=== PATIENT | female | born 1990 | race Caucasian/White ===

== ENCOUNTER → 2017-07-13 15:20 | Outpatient (CLI) | payer OTHER, SELFPAY ==
[2017-07-18 15:16] LABS: HPV APTIMA, High Risk Negative (Negative)
== END ==
PROVIDERS: Visit Provider Obstetrics & Gynecology
DX: Z12.4 Encounter for screening for malignant neoplasm of cervix (principal)
CPT/HCPCS: 88175; G0145

== ENCOUNTER → 2022-03-30 | Outpatient (CLI) | payer OTHER, SELFPAY ==
[2022-03-30 17:39] LABS: Absolute Lymphocyte Count 1.76 X10^3/uL (0.83-4.51); Absolute Neutrophil Count 3.2 X10^3/uL (2.0-7.7); Basophil# 0.01 X10^3/uL; Basophil% 0.2 % (0-1); Eosinophil# 0.08 X10^3/uL; Eosinophils% 1.5 % (0-5); Hematocrit 37.4 % (37-47); Hemoglobin 12.9 g/dL (12.0-15.0); Lymphocyte # 1.76 X10^3/ul (0.83-4.51); Lymphocyte % 32.4 % (19-41); Mean Corp Hgb Conc 34.5 g/dL (32-36); Mean Corpuscular Hgb 33.4 pg (27.0-32.0); Mean Corpuscular Volume 96.9 fL (81-99); Mean Platelet Vol. 9.2 fl (6.2-12.0); Monocyte% 7.4 % (0-10); NRBC Flagged by Analyzer 0 % (0-5); Neutrophil # 3.17 X10^3/uL (2.7-7.7); Neutrophil % 58.1 % (47-70); Platelet Count 271 K/mm3 (150-450); RBC Distribution Width CV 12.1 % (11.6-14.6); Red Blood Count 3.86 M/mm3 (4.2-5.4); White Blood Count 5.4 K/mm3 (4.4-11.0)
[2022-03-30 18:02] LABS: Vitamin D,25 Hydroxy 32.2 ng/mL
[2022-03-30 18:18] LABS: Anion Gap 4 (5-15); BUN 11 mg/dL (7-18); BUN/Creat Ratio 14.7 RATIO (10-20); Calcium,Total 8.9 mg/dL (8.5-10.1); Chloride 106 mmol/L (98-107); Creatinine, Serum 0.75 mg/dL (0.55-1.02); EST Glomerular Filtration Rate 95 mL/min (>60); Est Glom Filt Rate - Afr Amer 115 mL/min (>60); Glucose 84 mg/dL (74-106); Potassium 4.2 mmol/L (3.5-5.1); Sodium Level 139 mmol/L (136-145); Thyroid Stim Hormone (TSH) 0.68 uIU/mL (0.358-3.74)
== END | disposition home or self-care (01) ==
LOC: MFPLAB 14:14
PROVIDERS: PCP Family Medicine; Visit Provider Family Medicine
DX: R41.840 Attention and concentration deficit (principal)
CPT/HCPCS: 36415; 80048; 82306; 84443; 85025

== ENCOUNTER → 2022-09-30 | Outpatient (CLI) | payer OTHER, SELFPAY ==
[2022-10-06 18:07] LABS: HPV APTIMA, High Risk Negative (Negative)
== END | disposition home or self-care (01) ==
LOC: LABSPEC 16:02
PROVIDERS: PCP Family Medicine; Visit Provider Nurse Practitioner Women's Health
DX: Z01.419 Encounter for gynecological examination (general) (routine) without abnormal findings (principal)
CPT/HCPCS: 87624; 88175; G0145

== ENCOUNTER → 2023-01-17 | Outpatient (CLI) | payer OTHER, SELFPAY | END | disposition home or self-care (01) | LOC: LABSPEC 15:11 | PROVIDERS: PCP Family Medicine; Referring Provider Family Medicine; Visit Provider Family Medicine | DX: L03.011 Cellulitis of right finger (principal) | CPT/HCPCS: 87070; 87077; 87186; 87205 ==

== ENCOUNTER → 2023-04-18 | Outpatient (CLI) | payer OTHER, SELFPAY ==
--- NOTE | 2023-04-18 16:16 | RAD_ITS ---
STUDY: X-RAY - CERVICAL SPINE REASON FOR EXAM: Female, 32 years old. CHRONIC NECK PAIN TECHNIQUE: 7 view(s) of the cervical spine were obtained. COMPARISON: None FINDINGS: Normal anterior atlantoaxial articulation. Normal odontoid process. Normal cervical lordosis. No subluxation on the flexion or extension views to suggest instability. Normal vertebral bodies and endplates. Normal disc space heights. Normal visualized intervertebral neuroforamina. The soft tissue structures are unremarkable. RAD/Cerv Spine Obl/Flex/Ext Comp IMPRESSION: Normal x-ray examination of the visualized cervical spine. Electronically Signed: Neftaly Ruiz MD at 22:35 EST ,
== END | disposition home or self-care (01) ==
LOC: RAD 16:14
PROVIDERS: PCP Family Medicine; Referring Provider Anesthesiology Pain Medicine; Visit Provider Anesthesiology Pain Medicine
DX: M54.2 Cervicalgia (principal); G89.29 Other chronic pain
CPT/HCPCS: 72052

== ENCOUNTER 2023-04-23 01:37 | Emergency (ER) | payer OTHER, SELFPAY ==
[2023-04-23 01:42] VITALS: BP 119/69; PULSE 86; RESP 18; TEMP 37.2; O2SAT 100; BMI 19.8
--- NOTE | 2023-04-23 01:52 | EDS_ITS ---
HPI History of Present Illness HPI Narrative: Left foot and ankle injury when stepped on by a horse at 11 AM on Tuesday. No prior fracture or surgery to this foot or ankle. No other injuries. Chief Complaint: Lower Extremity Injury Informant: patient Occured/Mechanism Mechanism/Context: Yes injury and Yes blunt trauma Onset/Context/Timing Onset: Today and Hours Context: Sudden Onset Timing: Continuous Quality of Pain: Sharp and Stabbing Current Severity: Moderate Maximum Severity: Moderate Associated Symptoms Associated Symptoms: Negative for Parasthesia, Weakness or Loss of Funtion Narrative Narrative: 32-year-old female had her left foot and ankle stepped on by a horse at 11 AM on Tuesday. Sudden pain. Still bothering her. She went to have it evaluated. No prior history or surgery to the left foot or ankle. No other complaints. Prior similar symptoms: No Recent Illness/Hospitalization: No [facility] Medical History (Updated 04/23/23 @ 02:[address] Sunny Casper MD) Dyspnea, unspecified Nonspecific chest pain Supraventricular tachycardia Home Medications naproxen 500 mg tablet 500 mg PO BID 07/10/14 [History Last Taken 10/23/15 500 MG] tramadol 50 mg tablet 50 mg PO BID 07/10/14 [History Last Taken 10/23/15 50 MG] gabapentin 600 mg tablet 600 mg PO QHS 06/09/17 [History Last Taken Unknown] norgestimate 0.18 mg/0.215 mg/0.25 mg-ethinyl estradiol 25 mcg tablet (Ortho Tri-Cyclen LO (28)) 1 tab PO QDAY 06/09/17 [History Last Taken Unknown] Allergy/AdvReac Type Severity Reaction Status Date / Time Penicillins Allergy Hives Verified 06/09/17 16:04 sulfamethoxazole Allergy Hives Verified 06/09/17 16:04 [From Bactrim] trimethoprim [From Bactrim] Allergy Hives Verified 06/09/17 16:04 Family History Unknown No problems noted. Surgical History Closed left clavicular fracture History of cardiac radiofrequency ablation Social History Smoking Status: Never smoker ROS ROS ED ROS Narrative Resolving URI. Review of Systems ROS Unobtainable: Denies due to encephalopathy Constitutional Constitutional ED: Denies chills or fever(s) Eyes Eyes: Denies blurry vision ENT ENT ED: Denies ear pain Cardiovascular Cardiovascular: Denies chest pain Respiratory/Chest Respiratory/Chest: Reports cough; Denies dyspnea or dyspnea on exertion Gastrointestinal Gastrointestinal: Denies abdominal pain, diarrhea, nausea or vomiting Genitourinary Genitourinary ED: Denies dysuria or hematuria Musculoskeletal Musculoskeletal: Denies arthralgias Integumentary Denies abscess Neurologic Neurologic: Denies headache(s) Psychiatric Psychiatric: Denies anxiety Endocrine Endocrinology: Denies polydipsia Hematologic/Lymphatic Hematologic/Lymphatic: Denies easy bleeding, easy bruising or lymphadenopathy Allergic/Immunologic Allergic/Immunologic ED: Denies mouth swelling, tongue swelling or urticaria EXAM Physical Exam Narrative Exam Narrative: Well-appearing 32-year-old female. Vital signs stable afebrile. HEENT exam unremarkable atraumatic. Pupils round reactive light. Nontender. C-spine nontender. Back and spine nontender. Lungs clear to auscultation bilaterally. Heart regular rhythm rate about 85 no murmur. Chest wall and ribs nontender. Abdomen soft nontender. Pelvic girdle intact. Both upper extremities are nontender. 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 Normal range of motion. No deformity. Right lower extremity unremarkable. Left lateral ankle and proximal foot are tender to palpation. Minimal swelling. No deformity. Left foot is neurovascular intact. Skin intact. Proximal tib-fib, knee, thigh and hip are nontender with full range of motion. No swelling. Const Vital Signs: 04/23/23 01:42 Temperature 98.9 F Temperature Source Temporal Pulse Rate 86 Respiratory Rate 18 Blood Pressure 119/69 Blood Pressure Mean 85 Pulse Ox 100 Oxygen Delivery Method Room Air Positive well nourished and well developed; Negative for obese, cachectic, contractures or unkempt General Appearance ED: well developed and NAD; Negative for unkempt, cachectic or contractures Nutritional Appearance: Negative for cachectic or obese HEENT Reports moist mucous membranes normocephalic and atraumatic; Negative for trauma or tenderness Eyes PERRL General Eye ED: Negative for other Neck full ROM and supple Thyroid: Negative for tender Lymph Lymphatic: Negative for other Chest Wall inspection of chest normal and palpation of chest normal Chest: Negative for other Resp normal respiratory effort, no retractions and clear to auscultation bilaterally Effort and Inspection: Negative for pain with movement Auscultation: Negative for rales, rhonchi or wheezes Cardio regular rate, regular rhythm, S1 normal heart sound, S2 normal heart sound and no murmurs Rate: Negative for bradycardia or tachycardic Rhythm: Negative for abnormal rhythm Bruits: Negative for other GI non-tender, non-distended and no masses Inspection: Negative for abdominal distention Auscultation: normoactive bowel sounds Palpation: soft; Negative for tender, guarding or rebound tenderness present Bladder / Kidney Exam: No other Back/Spine no CVA tenderness General Back: Negative for CVA tenderness or swelling Cervical Spine: Negative for cervical spine tenderness Thoracic Spine / Upper Back: Negative for thoracic spinal tenderness Lumbar Spine / Lower Back: Negative for lumbar spinal tenderness Extremity normal to inspection and full ROM Extremity Narrative: Except left lateral ankle and proximal foot roentgenologist to palpation. Minimal swelling. No deformity. Neurovascular intact. Normal dorsi and plantarflexion left foot. Normal DP pulse. Skin intact. Able to do dorsi and plantarflexion left ankle. Achilles tendon intact tact. Distal to tenderness. No deformity. Normal flexion extension left knee and left hip. General Extremety ED: Negative for cyanosis or edema General Extremity: Negative for cyanosis or edema Neuro oriented x3, CN's II-XII intact bilaterally, moves all extremities and no sensory deficits noted Sensorium / Orientation: alert, oriented to person, oriented to place and oriented to time; Negative for orientation impaired, confused, lethargic or stuporous Motor Exam: strength 5/5 throughout Psych mental status grossly normal Appearance: Negative for unkempt Speech: No other Mood & Affect: Negative for anxious Skin no wounds Lesions: no lesions Rashes: no rashes Trauma: Negative for abrasion, laceration or puncture MDM MDM MDM Narrative Medical decision making narrative: 32-year-old female had her left foot and ankle stepped on by a horse x-rays being obtained. Patient was offered but did not want a thing for pain. Repeat exam at 2:33 AM. She and I went over her x-rays both of her foot and ankle there is no fracture or dislocation noted. Treat as a contusion. Ice. Elevate. Motrin and Tylenol. Follow-up if not improving. History & Record Review Discussion w/independent historian: Patient Additional record(s) reviewed:: Prior inpatient record, Prior outpatient record, Prior ED visit and Prior labs Radiography Diagnostic Testing: Left foot x-ray, 3 views, interpreted by myself shows shows no acute fracture or dislocation. Left ankle x-ray, 3 views, interpreted by myself shows shows no acute fracture or dislocation. Discharge Plan Triage Chief Complaint: Lower Extremity Injury ED Provider: Sunny Casper Dx/Rx/DC Orders Clinical Impression: Contusion of foot, Ankle contusion Instructions: ED Foot Contusion, ED Contusion, Lower Extremity Prescriptions: No Action norgestimate-ethinyl estradiol [Ortho Tri-Cyclen LO (28)] 0.18/0.215/0.25 mg- 25 mcg tablet 1 tab PO QDAY tramadol 50 MG tablet 50 mg PO BID Patient Comments: pain naproxen 500 MG tablet 500 mg PO BID gabapentin 600 MG tablet 600 mg PO QHS Patient Comments: nerve pain Primary Care Provider: Haroon Jorgensen Referrals: Haroon Jorgensen MD [Primary Care Provider] - 1 Week if not improving Activity Restrictions/Additional Instructions: X-ray of your foot and ankle looks good. Nothing broken or dislocated. Ice and elevate. Increase activity as tolerated. Follow-up if not improving to have it reevaluated. Motrin for pain and swelling. Disposition Disposition: Home, Self Care
--- NOTE | 2023-04-23 01:55 | RAD_ITS ---
INDICATION: trauma EXAMINATION/TECHNIQUE: X-RAY - LEFT XR Ankle Min 3 Views 3 VIEWS COMPARISON: FINDINGS: BONES: No fracture demonstrated. JOINTS: No dislocation. SOFT TISSUES: Unremarkable. RAD/Ankle min 3 Views IMPRESSION: No evidence of fracture. Electronically Signed: Melani Kohler MD at 3:11 EST ,
--- NOTE | 2023-04-23 01:55 | RAD_ITS ---
INDICATION: left foot trauma EXAMINATION/TECHNIQUE: X-RAY - LEFT XR Foot Min 3 Views 3 VIEWS COMPARISON: FINDINGS: BONES: No fracture demonstrated. JOINTS: No dislocation. SOFT TISSUES: Unremarkable. RAD/Foot min 3 Views IMPRESSION: No evidence of fracture. Electronically Signed: Melani Kohler MD at 3:12 EST ,
[2023-04-23 02:50] VITALS: BP 112/65; PULSE 81; RESP 18
== END 2023-04-23 02:50 | disposition home or self-care (01) ==
PROVIDERS: Emergency Provider Emergency Medicine; PCP Family Medicine; Visit Provider Emergency Medicine
DX: S90.02XA Contusion of left ankle, initial encounter (principal); S90.32XA Contusion of left foot, initial encounter; W55.89XA Other contact with other mammals, initial encounter; Z79.899 Other long term (current) drug therapy
CPT/HCPCS: 73610; 73630; 99284

== ENCOUNTER → 2024-09-25 | Outpatient (CLI) | payer OTHER, SELFPAY ==
[2024-09-25 15:55] LABS: Absolute Lymphocyte Count 1.48 X10^3/uL (0.83-4.51); Absolute Neutrophil Count 2.7 X10^3/uL (2.0-7.7); Basophil# 0.02 X10^3/uL; Basophil% 0.4 % (0-1); Eosinophil# 0.08 X10^3/uL; Eosinophils% 1.7 % (0-5); Hematocrit 39.4 % (37-47); Hemoglobin 13.3 g/dL (12.0-15.0); Lymphocyte # 1.48 X10^3/ul (0.83-4.51); Mean Corp Hgb Conc 33.8 g/dL (32-36); Mean Corpuscular Hgb 33.5 pg (27.0-32.0); Mean Corpuscular Volume 99.2 fL (81-99); Mean Platelet Vol. 9.5 fl (6.2-12.0); Monocyte# 0.44 X10^3/uL; Monocyte% 9.2 % (0-10); NRBC Flagged by Analyzer 0 % (0-5); Neutrophil # 2.74 X10^3/uL (2.7-7.7); Neutrophil % 57.5 % (47-70); Platelet Count 264 K/mm3 (150-450); RBC Distribution Width CV 12.1 % (11.6-14.6); RBC Distribution Width SD 44.1 fl (35.1-43.9); Red Blood Count 3.97 M/mm3 (4.2-5.4); White Blood Count 4.8 K/mm3 (4.4-11.0)
[2024-09-25 16:21] LABS: ALB/GLOB Ratio 1.9 RATIO (0.9-2.4); AST(SGOT) 25 U/L (<=31); Alanine Aminotransfer ALT/SGPT 13 U/L (<=34); Albumin, Serum 4.3 g/dL (3.5-5.0); Alkaline Phosphatase 57 U/L (35-104); Anion Gap 10 (5-15); BUN 15 mg/dL (4-19); BUN/Creat Ratio 22.7 RATIO (10-20); Calcium,Total 8.8 mg/dL (7.6-11.0); Carbon Dioxide 23.3 mmol/L (21.0-32.0); Chloride 106 mmol/L (98-108); Creatinine, Serum 0.67 mg/dL (0.70-1.20); EST Glomerular Filtration Rate 118 (>60); Globulin 2.2 g/dL (2.2-4.2); Glucose 94 mg/dL (70-99); Potassium 3.8 mmol/L (3.3-5.1); Protein, Total 6.6 g/dL (5.9-8.4); Sodium Level 139 mmol/L (133-145); Total Bilirubin 0.28 mg/dL (0.00-1.30)
[2024-09-25 17:53] LABS: Cholesterol 131 mg/dL (<=200); High Density Lipoprotein 52 mg/dL; Low Density Lipoprotein Calc. 67 mg/dL; Triglycerides 64 mg/dL; Very Low Density Lipoprotein 13 mg/dL (5-40); cholesterol:hdl ratio screen 2.54
[2024-09-25 17:59] LABS: Thyroid Stim Hormone (TSH) 0.646 uIU/mL (0.300-4.200); Vitamin B12 351 pg/mL (180-914); Vitamin D,25 Hydroxy 52.8 ng/mL (30-100)
== END | disposition home or self-care (01) ==
LOC: BFHLAB 11:23
PROVIDERS: PCP Nurse Practitioner Family; Visit Provider Nurse Practitioner Family
DX: Z00.01 Encounter for general adult medical examination with abnormal findings (principal); E03.9 Hypothyroidism, unspecified; R53.83 Other fatigue
CPT/HCPCS: 36415; 80053; 80061; 82306; 82607; 84439; 84443; 85025

== ENCOUNTER 2024-09-30 14:08 | Emergency (ER) | payer OTHER, SELFPAY ==
[2024-09-30 14:09] VITALS: BP 102/63; PULSE 51; RESP 16; TEMP 36.8; O2SAT 100
--- NOTE | 2024-09-30 14:23 | EDS_ITS ---
HPI <ARSALAN Jones - Last Filed: 09/30/24 14:56> History of Present Illness Chief Complaint: Laceration Narrative Narrative: 33-year-old [id number] female presents with a left index finger laceration. She was using a circular saw and lacerated the left index finger pad. She went inside and was cleaning it and felt lightheaded and fell and passed out. Her partner states she hit her head on the door frame and she has a small hematoma. She was only out for a couple seconds and quickly returned to baseline. Her bleeding is controlled. No blood thinners. She has a headache but denies vision changes, neck pain, or nausea or vomiting. No motor or sensory changes. Her tetanus was updated last week. [facility] <ARSALAN Jones - Last Filed: 09/30/24 14:56> [facility] Medical History (Updated 09/30/24 @ 16:[address] Haris Owen, DO) Supraventricular tachycardia Dyspnea, unspecified Nonspecific chest pain Home Medications ?Medication ?Instructions ?Recorded ?Last Taken ?Type naproxen 500 mg tablet 500 mg PO BID 07/10/1410/22 History 500 MG tramadol 50 mg tablet 50 mg PO BID 07/10/14 History 50 MG gabapentin 600 mg tablet 600 mg PO QHS 06/09/17 Unkno wn History norgestimate 0.18 mg/0.215mg/0.25 1 tab PO QDAY Unknown History mg-ethinyl estradiol 0.025 mg tablet (Ortho Tri-Cyclen LO (28)) Allergy/AdvReac Type Severity Reaction Status Date / Time Penicillins Allergy Hives Verified 09/30/24 14:10 sulfamethoxazole (From Allergy Hives Verified 09/30/24 14:10 Bactrim) trimethoprim (From Bactrim) Allergy Hives Verified 09/30/24 14:10 Family History Unknown No problems noted. Surgical History History of cardiac radiofrequency ablation Closed left clavicular fracture Social History Smoking Status: Never smoker ROS <ARSALAN Jones - Last Filed: 09/30/24 14:56> ROS ED ROS Narrative GI: Negative for nausea, vomiting. Neuro: Positive for headache, negative motor/sensory dysfunction. Skin: Positive for wound. EXAM <ARSALAN Jones - Last Filed: 09/30/24 14:56> Physical Exam Narrative Exam Narrative: CONST: Patient sitting in no acute distress. EYES: Normal inspection. HEAD: Small hematoma right parietal scalp. No abrasions or lacerations. No deformity or crepitus. No raccoon eyes or Cornejo sign, no epistaxis or nasal septal hematoma, no hemotympanum, no CSF otorrhea or rhinorrhea. NECK: Normal inspection. No midline spinal tenderness, no step off or crepitus. RESP: No respiratory distress, CTAB. CVS: Regular rate and rhythm, no murmur, no gallop. EXTREMITIES: Left index finger pad has 1 x 1 cm wound that is jagged macerated skin to the level of the subcutaneous fat. There is no tendon involvement. It is not deep enough to expose bone. She has full range of motion of left hand and digits including MCP PIP DIP joints. 2+ radial pulse and brisk cap refill. Normal motor and sensory function in median radial and ulnar distributions. NEURO: Alert and answering questions appropriately. PSYCH: Normal affect. Const Vital Signs: 09/30/24 14:09 09/30/24 15:02 Temperature 98.3 F 97.8 F Temperature Source Oral Pulse Rate 51 L 74 Respiratory Rate 16 19 H Blood Pressure 102/63 117/75 Blood Pressure Mean 76 89 Pulse Ox 100 100 <Dr. Haris Owen DO - Last Filed: 09/30/24 16:20> Physical Exam Const Vital Signs: 09/30/24 14:09 09/30/24 15:02 Temperature 98.3 F 97.8 F Temperature Source Oral Pulse Rate 51 L 74 Respiratory Rate 16 19 H Blood Pressure 102/63 117/75 Blood Pressure Mean 76 89 Pulse Ox 100 100 [facility] <ARSALAN Jones - Last Filed: 09/30/24 14:56> [facility] Narrative Medical decision making narrative: Patient has a laceration on her left index finger from a fall. There is a small area with jagged macerated skin. There is nothing to repair. It is only to level of the subcutaneous tissue without tendon or bony injury. She has full range of motion of all joints and neurovascularly intact. No indication for x- ray. Wound was cleansed and then dressed with bacitracin and a bandage. Her tetanus is already up-to-date. She was given wound care instructions and discharged in stable condition. <Dr. Haris Owen, DO - Last Filed: 09/30/24 16:20> [facility] Treatment and Re-Evaluation Narrative: I have personally performed a face to face assessment of the patient and have reviewed the ROSENDO Note. I performed a substantive portion of the visit including all aspects of the following. My hickey findings include: History: Patient presents with laceration to her left index finger that occurred today. Patient is right-hand dominant. Patient states she was using a miter saw. Patient states she cut her finger on the blade. Patient noted she lost some tissue. Patient noted some bleeding. Patient was cleaning her wound at home when she became lightheaded and passed out. Patient hit the right side of her head. Patient thinks she was only out for a few seconds. Patient states her last tetanus was within the last month. Patient denies any other injuries. Exam: Vital signs are stable except for mild bradycardia of 51. Patient is af ebrile. Patient is in no acute distress. Skin is warm and dry. There is a 1 cm x 1 cm laceration over the palmar aspect of the distal phalanx of the left index finger. There is loss of tissue noted. This goes into the fat layer. There is no bony crepitance or step-off. Sensation was intact to light touch in all digits. Capillary refill is less than 2 seconds in all digits. Strength is 5/5 in flexion and extension of the MP, PIP, and DIP joints. There is also mild tenderness over the right parietal area. There is no bony crepitance or step- off. Cranial nerves II through XII are intact. Medical Decision Making: Patient was advised that since there is loss of tissue, sutures would not be helpful to close this wound. Patient was advised that this would have to close with scar tissue naturally. Patient was advised to keep the wound clean and dry. Patient was also advised that her syncopal episode is most likely vasovagal from all the bleeding. Patient is agreeable with this. I do not feel that any further testing is necessary. Patient was instructed to follow-up with her primary care physician in 5 to 7 days. Patient was instructed to get plenty of rest. Patient was instructed to return if worse in any way. Patient understood and was agreeable with the plan. All questions were answered. Discharge Plan Triage Chief Complaint: Laceration ED Midlevel Provider: Araceli Mitchell ED Provider: Haris Owen Dx/Rx/DC Orders Clinical Impression: Laceration of left index finger, Syncope Instructions: ED Laceration Extremity Prescriptions: No Action norgestimate-ethinyl estradiol [Ortho Tri-Cyclen LO (28)] 0.18/0.215/0.25 mg- 25 mcg tablet 1 tab PO QDAY tramadol 50 MG tablet 50 mg PO BID Patient Comments: pain naproxen 500 MG tablet 500 mg PO BID gabapentin 600 MG tablet 600 mg PO QHS Patient Comments: nerve pain Primary Care Provider: Ines Whitman Referrals: Ines Whitman, [facility] [Primary Care Provider] - Activity Restrictions/Additional Instructions: Keep the area clean with soap and water. You can apply bacitracin ointment and a bandage until it is healed. Return if you develop signs of infection like redness, swelling, pus, or fever. Print Language: Paraguayan Disposition Disposition: Home, Self Care Discharge Date/Time: 09/30/24 15:03
--- OUTSIDE RECORDS SUMMARY | 2024-09-30 14:39 | XMS RPT_ITS | CCD ---
Author Organization [facility] Inform ion Partnership [facility] Care Team Providers Care Wing Coverer Name Role Phone Unavailable Primary Care Provider Unavailabl e Generic Provider MD, No Assigned Pcp Primary Car e Provider Unavailable DINO LUND Attending Unavailable GENERIC PROVIDER, NO ASSIGNED PCP Primary Care Unavailable Ines Whitman Attending Unavailable Ines Whitman Primary Care Unavailable Allergies Allergy Classification Reported Allergen(s) Allergy Type Date of Onset Reaction(s) Facility (5 sources) Penicillins; Translations: [PENICILLINS] Allergy to substance 03-18-[address] [place] [address] (4 sources) Sulfamethoxazole Drug Allergy 06-10-[address] [place] [address] (4 sources) Trimethoprim Drug Allergy 06-10-[address] [place] [address] (1 source) Penicillins Drug Intolerance 03-18-[address] [place] [address] Work Phone: (1 source) Penicillins Drug Intolerance 03-18-[address] [place] [address] Work Phone: (1 source) Penicillins Drug allergy (disorder) 06-10-[address] [place] [address] Repository (1 source) Sulfamethoxazole Drug Allergy 06-10-[address] [place] [address] Repository (1 source) Trimethoprim Drug Allergy 06-10-[address] [place] [address] Repository Medications Current Medications Medication Drug Class(es) Dates Sig (Normalized) Sig (Original) Norgestimate-Ethin yl Estradiol (4 sources) Progestin, Estrogen Start: 06-09-2017 take 1 tablet by mouth once daily Norgestimate-Ethi nyl Estradiol (Ortho Tri-Cyclen Lo (28)) 0.18/0.215/0.25 mg-25 mcg tablet Active 1 TABLET PO daily June 09, 2017 1:00am Start: 06-09-2017 take 1 tablet by mis th once daily Norgestimate-Ethinyl Estradiol (Ortho Tri-Cyclen Lo (28)) 0.18/0.215/0.25 mg-25 mcg tablet Active 1 TABLET PO daily June 09, 2017 12:00am gabapentin 600 mg oral tablet (10 sources) Anti-epileptic Agent Start: 07-10-2014 End: 06-09-2017 take 600 mg by mouth at bedtime Gabapentin Active 600 MG PO AT BEDTIME June 09, 2017 4:04pm take 1 tablet by mouth twice frederic ly gabapentin (Neurontin) 600 mg tablet Take 1 tablet (600 mg) by mouth 2 times a day. Active naproxen 500 mg oral tablet (4 sources) Nonsteroidal Anti-inflammatory Drug Start: 07-10-2014 take 500 mg by mouth twice daily Naproxen Active 500 MG PO TWICE A DAY July 09, 2014 11:00pm norethindrone 0.35 mg oral tablet (1 source) Start: 07-09-2024 End: 07-09-2025 norethindrone (Micronor) 0.35 mg tablet Indications: Encounter for surveillance of contraceptive pills Take 1 tablet (0.35 mg) over 28 days by mouth once daily. 28 tablet 11 07/09/2024 07/09/2025 Active tiZANidine 4 mg oral tablet (2 sources) Central alpha-2 Adrenergic Agonist Start: 06-12-2023 take 1 tablet by mouth three times daily tiZANidine (Zanaflex) 4 mg tablet Take 1 tablet (4 mg) by mouth 3 times a day. 06/12/2023 Active traMADol hydrochloride 50 mg oral tablet (6 sources) Opioid Agonist Start: 06-18-2023 take 1 tablet by mouth once daily traMADol (Ultram) 50 mg tablet Take 1 tablet (50 mg) by mouth once daily. 06/18/2023 Active Start: 06-18-2023 take 1 tablet by mis th three times daily traMADol (Ultram) 50 mg tablet Take 1 tablet (50 mg) by mouth 3 times a day. 0 06/18/2023 Active Start: 07-10-2014 take 50 mg by mouth twice mars y Tramadol Active 50 MG PO TWICE A DAY July 09, 2014 11:00pm Completed/Discontinued Medications Medication Drug Class(es) Dates Sig (Normalized) Sig (Original) cyclobenzaprine hydrochloride 10 mg oral tablet (4 sources) Muscle Relaxant Start: 02-19-2015 End: 06-09-2017 take 10 mg by mouth three times daily Cyclobenzaprine Discontinued 10 MG PO THREE TIMES A DAY February 19, 2015 12:00am June 09, 2017 4:04pm DULoxetine 60 mg delayed release oral capsule (2 sources) Serotonin and Norepinephrine Reuptake Inhibitor Start: 06-15-2023 End: 07-09-2024 take 1 capsule by mouth once daily DULoxetine (Cymbalta) [address] capsule Take 1 (one) Capsule by mouth once a day. 06/15/2023 07/09/2024 Discontinued (Med List Cleanup) Problems Active Problems Problem Classification Problem Date Documented Date Episodic/Chronic Cardiac dysrhythmias (4 sources) Supraventricular tachycardia; Translations: [Supraventricular tachycardia] 05-09-2017 Chronic Cardiac dysrhythmias (4 sources) Tachyarrhythmia ; Translations: [Tachycardia, unspecified] 02-26-2015 Episodic Contraceptive and procreative management (3 sources) Oral contraception; Translations: [Encounter for surveillance of contraceptive pills] Onset: 07-09-2024 07-09-2024 Episodic Fracture of upper limb (4 sources) Closed fracture of clavicle; Translations: [Fracture of unspecified part of left clavicle, initial encounter for closed fracture] 06-08-2017 Episodic Nonspecific chest pain (4 sources) Chest pain; Translations: [Chest pain, unspecified] 05-09-2017 Episodic Other lower respiratory disease (4 sources) Dyspnea; Translations: [Dyspnea, unspecified] 05-09-2017 Episodic Other screening for suspected conditions (not mental disorders or infectious disease) (4 sources) Patient encounter status; Translations: [Encounter for screening for malignant neoplasm of cervix] Onset: 07-09-2024 07-06-2023 Episodic Residual codes; unclassified (4 sources) History of radiofrequency ablation operation for arrhythmia; Translations: [Other specified postprocedural states] 06-08-2017 Episodic Spondylosis; intervertebral disc disorders; other back problems (4 sources) Chronic neck pain; Translations: [Cervicalgia] 02-26-2015 Episodic Superficial injury; contusion (2 sources) Contusion of foot; Translations: [Contusion of unspecified foot, initial encounter] 04-23-2023 Episodic Past or Other Problems Problem Classification Problem Date Documented Da te Episodic/Chronic Unclassified (1 source) Onset: 07-09-2024 07-09-2024 Results Test Name Value Interpretation Reference Range Facility CBC W/Diff, Automatedon 09-03 Absolute Lymph 1.48 X10 3/uL Normal 0.83-4.51 [facility] Comment on above: Performed By: #### L 506.1001, L500.4100, L501.9520, L500.4050, L100.0100, L503.0106, L506.0400 #### [facility] [address] [place], [address] Absolute Neut 2.7 X10 3/uL Normal 2.0-7.7 [facility] Comment on above: Performed By: #### L 506.1001, L500.4100, L501.9520, L500.4050, L100.0100, L503.0106, L506.0400 #### [facility] [address] [place], [address] Basophils/100 WBC (Bld) 0.4 % Normal 0-1 [facility] Comment on above: Performed By: #### L 506.1001, L500.4100, L501.9520, L500.4050, L100.0100, L503.0106, L506.0400 #### [facility] [address] [place], [address] Eosinophils/100 WBC (Bld) 1.7 % Normal 0-5 [facility] Comment on above: Performed By: #### L 506.1001, L500.4100, L501.9520, L500.4050, L100.0100, L503.0106, L506.0400 #### [facility] [address] [place], [address] Erythrocyte distribution width (RBC) [Ratio] 12.1 % Normal 11.6-14.6 [facility] Comment on above: Performed By: #### L 506.1001, L500.4100, L501.9520, L500.4050, L100.0100, L503.0106, L506.0400 #### [facility] [address] [place], [address] Hematocrit (Bld) [Volume fraction] 39.4 % Normal 37-47 [facility] Comment on above: Performed By: #### L 506.1001, L500.4100, L501.9520, L500.4050, L100.0100, L503.0106, L506.0400 #### [facility] [address], [address] Hemoglobin (Bld) [Mass/Vol] 13.3 g/dL Normal 12.0-15.0 [facility] Comment on above: Performed By: #### L 506.1001, L500.4100, L501.9520, L500.4050, L100.0100, L503.0106, L506.0400 #### [facility] [address] [place], [address] IG% 0.200 Normal 0.0-0.9 [facility] Comment on above: Result Comment: IG% - Immature Granulocytes (promyelocytes, myelocytes and metamyelocytes) > 1% indicates that a LEFT SHIFT is Present. Performed By: #### L 506.1001, L500.4100, L501.9520, L500.4050, L100.0100, L503.0106, L506.0400 #### [facility] [address] [place], [address] Lymphocytes/100 WBC (Bld) 31.0 % Normal 19-41 [facility] Comment on above: Performed By: #### L 506.1001, L500.4100, L501.9520, L500.4050, L100.0100, L503.0106, L506.0400 #### [facility] [address] [place], [address] MCH (RBC) [Entitic mass] 33.5 pg High 27.0-32.0 [facility] Comment on above: Performed By: #### L 506.1001, L500.4100, L501.9520, L500.4050, L100.0100, L503.0106, L506.0400 #### [facility] [address] [place], [address] MCHC (RBC) [Mass/Vol] 33.8 g/dL Normal 32-36 [facility] Comment on above: Performed By: #### L 506.1001, L500.4100, L501.9520, L500.4050, L100.0100, L503.0106, L506.0400 #### [facility] [address] [place], [address] MCV (RBC) [Entitic vol] 99.2 fL High 81-99 [facility] Comment on above: Performed By: #### L 506.1001, L500.4100, L501.9520, L500.4050, L100.0100, L503.0106, L506.0400 #### [facility] [address] [place], [address] Monocytes/100 WBC (Bld) 9.2 % Normal 0-10 [facility] Comment on above: Performed By: #### L 506.1001, L500.4100, L501.9520, L500.4050, L100.0100, L503.0106, L506.0400 #### [facility] [address] [place], [address] Neutrophils/100 WBC (Bld) 57.5 % Normal 47-70 [facility] Comment on above: Performed By: #### L 506.1001, L500.4100, L501.9520, L500.4050, L100.0100, L503.0106, L506.0400 #### [facility] [address] [place], [address] Nucleated RBC (Bld) [#/Vol] 0 10*3/uL Normal 0-5 [facility] Comment on above: Performed By: #### L 506.1001, L500.4100, L501.9520, L500.4050, L100.0100, L503.0106, L506.0400 #### [facility] [address] [place], [address] Platelet mean volume (Bld) [Entitic vol] 9.5 fL Normal 6.2-12.0 [facility] Comment on above: Performed By: #### L 506.1001, L500.4100, L501.9520, L500.4050, L100.0100, L503.0106, L506.0400 #### [facility] [address] [place], [address] Platelets (Bld) [#/Vol] 264 10*3/uL Normal 150-450 [facility] Comment on above: Performed By: #### L 506.1001, L500.4100, L501.9520, L500.4050, L100.0100, L503.0106, L506.0400 #### [facility] [address] [place], [address] RBC (Bld) [#/Vol] 3.97 10*6/uL Low 4.2-5.4 [facility] Comment on above: Performed By: #### L 506.1001, L500.4100, L501.9520, L500.4050, L100.0100, L503.0106, L506.0400 #### [facility] [address] [place], [address] RDW SD 44.1 fl High 35.1-43.9 [facility] Comment on above: Performed By: #### L 506.1001, L500.4100, L501.9520, L500.4050, L100.0100, L503.0106, L506.0400 #### [facility] [address] [place], [address] WBC (Bld) [#/Vol] 4.8 10*3/uL Normal 4.4-11.0 [facility] Comment on above: Performed By: #### L 506.1001, L500.4100, L501.9520, L500.4050, L100.0100, L503.0106, L506.0400 #### [facility] [address], [address] Comprehensive Metabolic Prof vaon 09-25-2024 Albumin [Mass/Vol] 4.3 g/dL Normal 3.5-5.0 [facility] Comment on above: Performed By: #### L 506.1001, L500.4100, L501.9520, L500.4050, L100.0100, L503.0106, L506.0400 #### [facility] [address], [address] Albumin/Globulin [Mass ratio] 1.9 {ratio} Normal 0.9-2.4 [facility] Comment on above: Performed By: #### L 506.1001, L500.4100, L501.9520, L500.4050, L100.0100, L503.0106, L506.0400 #### [facility] [address] [place], [address] ALK PHOS 57 U/L Normal 35-104 [facility] Comment on above: Performed By: #### L 506.1001, L500.4100, L501.9520, L500.4050, L100.0100, L503.0106, L506.0400 #### [facility] [address] [place], [address] ALT [Catalytic activity/Vol] 13 U/L Normal <=34 [facility] Comment on above: Performed By: #### L 506.1001, L500.4100, L501.9520, L500.4050, L100.0100, L503.0106, L506.0400 #### [facility] [address] [place], [address] AST [Catalytic activity/Vol] 25 U/L Normal <=31 [facility] Comment on above: Performed By: #### L 506.1001, L500.4100, L501.9520, L500.4050, L100.0100, L503.0106, L506.0400 #### [facility] [address] [place], [address] Bilirubin [Mass/Vol] 0.28 mg/dL Normal 0.00-1.30 [facility] Comment on above: Performed By: #### L 506.1001, L500.4100, L501.9520, L500.4050, L100.0100, L503.0106, L506.0400 #### [facility] [address] [place], [address] BUN/CRE 22.7 RATIO High 10-20 [facility] Comment on above: Performed By: #### L 506.1001, L500.4100, L501.9520, L500.4050, L100.0100, L503.0106, L506.0400 #### [facility] [address] [place], [address] Calcium [Mass/Vol] 8.8 mg/dL Normal 7.6-11.0 [facility] Comment on above: Performed By: #### L 506.1001, L500.4100, L501.9520, L500.4050, L100.0100, L503.0106, L506.0400 #### [facility] [address] [place], [address] Chloride [Moles/Vol] 106 mmol/L Normal 98-108 [facility] Comment on above: Performed By: #### L 506.1001, L500.4100, L501.9520, L500.4050, L100.0100, L503.0106, L506.0400 #### [facility] [address] [place], [address] CO2 [Moles/Vol] 23.3 mmol/L Normal 21.0-32.0 [facility] Comment on above: Performed By: #### L 506.1001, L500.4100, L501.9520, L500.4050, L100.0100, L503.0106, L506.0400 #### [facility] [address] [place], [place], [id number] (634) Creatinine [Mass/Vol] 0.67 mg/dL Low 0.70-1.20 [facility] Comment on above: Performed By: #### L 506.1001, L500.4100, L501.9520, L500.4050, L100.0100, L503.0106, L506.0400 #### [facility] [address] [place], [address] GAP 10 Normal 5-15 [facility] Comment on above: Performed By: #### L 506.1001, L500.4100, L501.9520, L500.4050, L100.0100, L503.0106, L506.0400 #### [facility] [address] [place], [address] GFR/1.73 sq M.predicted among non-blacks MDRD (S/P/Bld) [Vol rate/Area] 118 mL/min/{1.73_m2} Normal >60 [facility] Comment on above: Result Comment: mL/m in/1.73m2 CKD-EPI Creatinine Equation (2020) Performed By: #### L 506.1001, L500.4100, L501.9520, L500.4050, L100.0100, L503.0106, L506.0400 #### [facility] [address] [place], [address] Globulin (S) [Mass/Vol] 2.2 g/dL Normal 2.2-4.2 [facility] Comment on above: Performed By: #### L 506.1001, L500.4100, L501.9520, L500.4050, L100.0100, L503.0106, L506.0400 #### [facility] [address] [place], [address] Glucose [Mass/Vol] 94 mg/dL Normal 70-99 [facility] Comment on above: Performed By: #### L 506.1001, L500.4100, L501.9520, L500.4050, L100.0100, L503.0106, L506.0400 #### [facility] [address] [place], [address] Potassium [Moles/Vol] 3.8 mmol/L Normal 3.3-5.1 [facility] Comment on above: Performed By: #### L 506.1001, L500.4100, L501.9520, L500.4050, L100.0100, L503.0106, L506.0400 #### [facility] [address] [place], [address] Sodium [Moles/Vol] 139 mmol/L Normal 133-145 [facility] Comment on above: Performed By: #### L 506.1001, L500.4100, L501.9520, L500.4050, L100.0100, L503.0106, L506.0400 #### [facility] [address] [place], [address] T PROT 6.6 g/dL Normal 5.9-8.4 [facility] Comment on above: Performed By: #### L 506.1001, L500.4100, L501.9520, L500.4050, L100.0100, L503.0106, L506.0400 #### [facility] [address] [place], [address] Urea nitrogen [Mass/Vol] 15 mg/dL Normal 4-19 [facility] Comment on above: Performed By: #### L 506.1001, L500.4100, L501.9520, L500.4050, L100.0100, L503.0106, L506.0400 #### [facility] [address] [place], [address] Lipid Profileon 09-25-2024 CHOL:HDL 2.54 Normal [facility] Comment on above: Performed By: #### L 506.1001, L500.4100, L501.9520, L500.4050, L100.0100, L503.0106, L506.0400 #### [facility] [address] [place], [place], [id number] Cholesterol [Mass/Vol] 131 mg/dL Normal <=200 [facility] Comment on above: Result Comment: Chol esterol level, Desirable <200 mg/dL Borderline high cholesterol 200-239 mg/dL High cholesterol >=240 mg/dL Recommendations of the NCEP Adult Treatment Panel for the following risk-cutoff thresholds for the [place] population. Performed By: #### L 506.1001, L500.4100, L501.9520, L500.4050, L100.0100, L503.0106, L506.0400 #### [facility] [address] [place], [address] Cholesterol in HDL [Mass/Vol] 52 mg/dL Normal [facility] Comment on above: Result Comment: Sangeetha onal Cholesterol Education Program (NCEP) guidelines: <40 mg/dL: Low HDL-cholesterol (major risk factor for CHD) >= 60 mg/dL: High HDL-cholesterol (negative risk factor for CHD) HDL-cholesterol is affected by a number of factors, e.g. smoking, exercise, hormones, sex and age. Performed By: #### L 506.1001, L500.4100, L501.9520, L500.4050, L100.0100, L503.0106, L506.0400 #### [facility] [address], [address] Cholesterol in LDL [Mass/Vol] 67 mg/dL Normal [facility] Comment on above: Result Comment: Bord acpyow=325-471 mg/dL Higher Jaxg=570 mg/dL or greater Performed By: #### L 506.1001, L500.4100, L501.9520, L500.4050, L100.0100, L503.0106, L506.0400 #### [facility] [address] [place], [address] Cholesterol in VLDL [Mass/Vol] 13 mg/dL Normal 5-40 [facility] Comment on above: Performed By: #### L 506.1001, L500.4100, L501.9520, L500.4050, L100.0100, L503.0106, L506.0400 #### [facility] [address] [place], [address] Triglyceride [Mass/Vol] 64 mg/dL Normal [facility] Comment on above: Result Comment: The drugs N-Acetylcysteine and Metamizole may falsely depress this assay. Normal range: <150 mg/dL Borderline High: 150-199 mg/dL High: 200-499 mg/dL Very High: >500 mg/dL Performed By: #### L 506.1001, L500.4100, L501.9520, L500.4050, L100.0100, L503.0106, L506.0400 #### [facility] [address] [place], [place], [id number] T4 Free Directon 09-25-2024 T4 FREE DIRECT 1.30 ng/dL Normal 0.76-1.46 [facility] Comment on above: Performed By: #### L 506.1001, L500.4100, L501.9520, L500.4050, L100.0100, L503.0106, L506.0400 #### [facility] [address] [place], [place], [id number] Thyroid Stim Hormone (TSH)on 09-25-2024 TSH 0.646 uIU/mL Normal 0.300-4.200 [facility] Comment on above: Performed By: #### L 506.1001, L500.4100, L501.9520, L500.4050, L100.0100, L503.0106, L506.0400 #### [facility] [address] [place], [place], [id number] Vitamin B12on 09-25-2024 Cobalamin (Vitamin B12) [Mass/Vol] 351 pg/mL Normal 180-914 [facility] Comment on above: Performed By: #### L 506.1001, L500.4100, L501.9520, L500.4050, L100.0100, L503.0106, L506.0400 #### [facility] [address] [place], [place], [id number] Vitamin D,25 Hydroxyon 09-25 Vitamin D 25-OH 52.8 ng/mL Normal 30-100 [facility] Comment on above: Result Comment: [place] min D Status Deficiency: <20 ng/mL (50nmol/L) Insufficiency: 20-30 ng/mL (50-75 nmol/L) Sufficiency: 30-100 ng/mL (75-250 nmol/L) Toxicity: >100 ng/mL (>250 nmol/L) Performed By: #### L 506.1001, L500.4100, L501.9520, L500.4050, L100.0100, L503.0106, L506.0400 #### [facility] [address] [place], [address] Cervicalon 07-09-2024 Cytology Cervical or vaginal smear or scraping study Pathology report.total SEE COMMENT Gynecologic Cytology Case: [id number] Authorizing Provider: Dino Lund MD Collected: 07/09/20241555 Ordering Location: [facility] Received: 07/09/20241555 First Screen: RETA Espitia Specimen: ThinPrep Liquid-Based Pap-Imaging System Screen, CERVIX, SCREENING Cytology study comment SEE COMMENT A. THINPREP PAP CERVIX, SCREENING - Specimen Adequacy Satisfactory for evaluation; endocervical/transfo rmation zone component is present General Categorization Negative for intraepithelial lesion or malignancy. Descriptive Interpretation Negative for intraepithelial lesion or malignancy Shift in vaginal ej suggestive of bacterial vaginosis Specimen does not meet the requisition-stated criteria for HPV testing. See Pap test interpretation above. at 1959 EDT Laboratory comment SEE COMMENT Slide(s) initially screened by RETA Espitia at [facility] [id number] [place] [phone] By the signature on this report, the individual or group listed as making the Final Interpretation/Diagn osis certifies that they have reviewed this case. This specimen has been analyzed by the ThinPrep Imaging System ([employer] an automated imaging and review system, which assists the laboratory in evaluating cells on ThinPrep Pap tests. Following automated imaging, selected mandel from every slide were reviewed by a desulfurizer operator and/or pathologist. Cervical cytology is a screening procedure primarily for squamous cancers and precursors and has associated false-negative and false-positives results as evidenced by published data. Your patient's test should be interpreted in this context, together with the patient's history and clinical findings. Regular sampling and follow-up of unexplained clinical signs and symptoms are recommended to minimize false negative results. LAB AP HPV HR Reflex if ASCUS only LAB AP HPV GENOTYPE QUESTION Yes Date last menstrual period 06/15/2024 [facility] Bacteria identified Cx Nom ( Wound)Ordered By: Luis Gooden on 01-18-2023 Wound Culture Klebsiella oxytoca [facility] Wound Culture Haemophilus parainfluenzae [facility] Wound Culture Streptococcus group C [facility] Gram stain for investigation of transfusion reactionOrdered By: Luis Gooden on 01-18-2023 Microscopic observation Gram stain Nom (Unsp spec) [facility] Bacteria identified Cx Nom ( Wound)Ordered By: Luis Gooden on 01-17-2023 Wound Culture Klebsiella oxytoca [facility] Wound Culture Haemophilus parainfluenzae [facility] Wound Culture Streptococcus group C [facility] Gram stain for investigation of transfusion reactionOrdered By: Luis Gooden on 01-17-2023 Microscopic observation Gram stain Nom (Unsp spec) [facility] [facility] Cervical or vagninal specime n microscopic examination by cytology stain (reported asOrdered By: Ophelia Newberry on 09-30-2022 Cytology report Cyto stain Doc (Cvx/Vag) Comment . [facility] Comment on above: The Pap smear is a s creening test designed to aid in thedetection of premalignant and malignant conditions of theuterine cervix. It is not a diagnostic procedure andshould not be used as the sole means of detecting cervicalcancer. Both false-positive and false-negative reports dooccur. Detection in cervical specim en of any of human papilloma virus (HPV) 16, 18, 31, 33,Ordered By: Ophelia Newberry on 09-30-2022 HPV 16+18+31+33+35+39+45+51 +52+56+58+59+66+68 DNA Probe+sig amp Ql (Cvx) Negative Negative [facility] Comment on above: This nucleic acid am plification test detects fourteen high-risk HPV types (16,18,31,33,35,39,45,51,52,56,58,59,66,68)without differentiation. Laboratory - CytologyOrdered By: Opheila Newberry on 09-30-2022 Financial Advisor Trainee Cyto stain Nom (Cvx/Vag) [ID] Comment . [facility] Comment on above: Rosales Jack totechnologist (ASCP) Laboratory - Miscellaneous t estsOrdered By: Ophelia Newberry on 09-30-2022 Service comment (Unsp spec) [Interp] TNP [facility] Comment on above: Test not performedTh e Thin Prep(R) Community Administrator was unable to read this specimen.Therefore a manual review was performed. Service comment (Unsp spec) [Interp] . . [facility] Liquid-based cerv Pap + CT/G C by RAJEEV w reflex to high-risk HPV for ASCUSOrdered By: Ophelia Newberry on 09-30-2022 Cytology report Cyto stain.thin prep Doc (Cvx/Vag) Comment . [facility] Comment on above: Criteria not met, HP V Genotype not performed.Performed at: - [facility] [id number] Director: Helena Gilbert MD, Phone: [phone] at: =[facility] [id number] Director: Helena Gilbert MD, Phone: [phone] No Panel InformationOrdered By: Ophelia Newberry on 09-30-2022 Pathology report final diagnosis Narrative Comment . [facility] Comment on above: NEGATIVE FOR INTRAEP ITHELIAL LESION OR MALIGNANCY. Absolute lymphocyte counton 03-30-2022 Lymphocytes Auto (Unsp spec) [#/Vol] 1.76 10*3/uL 0.83-4.51 [facility] Work Phone: Basophil percentageon 2021 Basophils/100 WBC (Bld) 0.2 % 0-1 [facility] Work Phone: Chloride [Moles/Vol] 106 mmol/L 98-107 [facility] Work Phone: Eosinophils/100 WBC (Bld) 1.5 % 0-5 [facility] Work Phone: Glucose [Mass/Vol] 84 mg/dL 74-106 [facility] Work [facility]: Neutrophils (Bld) [#/Vol] 3.2 10*3/uL 2.0-7.7 [facility] Work Phone: Neutrophils/100 WBC (Bld) 58.1 % 47-70 [facility] Work Phone: Potassium [Moles/Vol] 4.2 mmol/L 3.5-5.1 [facility] Work Phone: Sodium [Moles/Vol] 139 mmol/L 136-145 [facility] Work Phone: WBC (Bld) [#/Vol] 5.4 10*3/uL 4.4-11.0 [facility] Work Phone: Blood erythrocytes count (nu mber/volume)on 03-30-2022 RBC (Bld) [#/Vol] 3.86 10*6/uL 4.2-5.4 [facility] Work [facility]: Blood hemoglobin measurement (mass/volume)on 03-30-2022 Hemoglobin (Bld) [Mass/Vol] 12.9 g/dL 12.0-15.0 [facility] Work Phone: Blood lymphocytes/100 leukoc yteson 03-30-2022 Lymphocytes/100 WBC (Bld) 32.4 % 19-41 [facility] Work Phone: Blood monocytes/100 leukocyt eson 03-30-2022 Monocytes/100 WBC (Bld) 7.4 % 0-10 [facility] Work Phone: Blood platelet mean volumeon 03-30-2022 Platelet mean volume (Bld) [Entitic vol] 9.2 fL 6.2-12.0 [facility] Work Phone: Determination of erythrocyte mean corpuscular volume (MCV)on 03-30-2022 MCV (RBC) [Entitic vol] 96.9 fL 81-99 [facility] Work Phone: Hematocrit Auto (Bld) [Volum e fraction]on 03-30-2022 Hematocrit (Bld) [Volume fraction] 37.4 % 37-47 [facility] Work Phone: Laboratory - Chemistry and C hemistry - challengeon 03-30-2022 CO2 [Moles/Vol] 29.0 mmol/L 21.0-32.0 [facility] Work Phone: Urea nitrogen/Creatinine [Mass ratio] 14.7 mg/mg 10-20 [facility] Work Phone: Laboratory - Hematology and Cell countson 03-30-2022 Erythrocyte distribution width (RBC) [Entitic vol] 43.0 fL 35.1-43.9 [facility] Work Phone: Erythrocyte distribution width (RBC) [Ratio] 12.1 % 11.6-14.6 [facility] Work Phone: Immature granulocytes/100 WBC (Bld) 0.400 % 0.0-0.9 [facility] Work Phone: Comment on above: IG% - Immature Granu locytes (promyelocytes, myelocytes and metamyelocytes) > 1% indicates that a LEFT SHIFT is Present. MCH (RBC) [Entitic mass] 33.4 pg 27.0-32.0 [facility] Work Phone: Nucleated RBC/100 WBC (Bld) [Ratio] 0 % 0-5 [facility] Work Phone: MCHC Auto (RBC) [Mass/Vol]on 03-30-2022 MCHC (RBC) [Mass/Vol] 34.5 g/dL 32-36 [facility] Work Phone: No Panel Informationon 03-30 Estimated GFR (MDRD) Amer 115 mL/min >60 [facility] Work Phone: Comment on above: GFR Calc Estimated GFR (MDRD) Non-Af Amer 95 mL/min >60 [facility] Work Phone: Comment on above: Non- GFR Calc Thyroid Stimulating Hormone (TSH) 0.68 uIU/mL 0.358-3.74 [facility] Work Phone: Vitamin D 25-Hydroxy 32.2 ng/mL [facility] Work Phone: Comment on above: Vitamin D 25(OH) Sta tus Range Deficiency <20 ng/mL (50nmol/L) Insufficiency 20 - 30 ng/mL (50 - 75 nmol/L) Sufficiency 30 - 100 ng/mL (75 - 250 nmol/L) Toxicity >100 ng/mL (>250 nmol/L) Platelets bldon 03-30-2022 Platelets (Bld) [#/Vol] 271 10*3/uL 150-450 [facility] Work Phone: Serum or plasma calcium yoli urement (mass/volume)on 03-30-2022 Calcium [Mass/Vol] 8.9 mg/dL 8.5-10.1 [facility] Work Phone: Serum or plasma creatinine m easurement (mass/volume)on 03-30-2022 Creatinine [Mass/Vol] 0.75 mg/dL 0.55-1.02 [facility] Work Phone: Comment on above: The validity of the calculated GFR & GFRAA in patients over 70 years has not been determined. Clinical correlation is essential. Serum or plasma urea nitroge n measurement (mass/volume)on 03-30-2022 Urea nitrogen [Mass/Vol] 11 mg/dL 7-18 [facility] Work Phone: Thin prep Papanicolaou smear with manual screeningon 03-30-2022 Thin prep Papanicolaou smear with manual screening 4 5-15 [facility] Work Phone: Vital Signs Date Time Vital Sign Value Performing Clinician Facility 07-09-2024 15:47-0400 Body height 162.6 cm Dino Lund MD Work Phone: [facility] 07-09-2024 15:47-0400 Body mass index (BMI) [Ratio] 19.71 kg/m2 Dino Lund MD Work Phone: [facility] 07-09-2024 15:47-0400 Body weight 52.07 kg Dino Lund MD Work Phone: [facility] 04-07-2025 15:47-0400 Diastolic blood pressure 64 mm[Hg] Dino Lund MD Work Phone: [facility] 07-09-2024 15:47-0400 Systolic blood pressure 118 mm[Hg] Dino Lund MD Work Phone: [facility] 07-06-2023 15:42-0400 Body height 162.6 cm Dino Lund MD Work Phone: [facility] 07-06-2023 15:42-0400 Body mass index (BMI) [Ratio] 21.63 kg/m2 Dino Lund MD Work Phone: [facility] 07-06-2023 15:42-0400 Body weight 57.15 kg Dino Lund MD Work Phone: [facility] 07-06-2023 15:42-0400 Diastolic blood pressure 66 mm[Hg] Dion Lund MD Work Phone: [facility] 07-06-2023 15:42-0400 Systolic blood pressure 102 mm[Hg] Dino Lund MD Work Phone: [facility] 04-23-2023 02:50-0500 Diastolic blood pressure 65 mm[Hg] [facility] 04-23-2023 02:50-0500 Heart rate 81 /min [facility] 04-23-2023 02:50-0500 Respiratory rate 18 /min [facility] 04-23-2023 02:50-0500 Systolic blood pressure 112 mm[Hg] [facility] 04-23-2023 01:42-0500 Body height 162.56 cm [facility] 04-23-2023 01:42-0500 Body mass index (BMI) [Ratio] 19.8 kg/m2 [facility] 04-23-2023 01:42-0500 Body temperature 98.9 [degF] [facility] 04-23-2023 01:42-0500 Body weight 52.5 kg [facility] 04-23-2023 01:42-0500 SaO2% (BldA) [Mass fraction] 100 % [facility] Encounters Encounter Date Encounter Type Care Provider Facility Start: 09-25-2024 ambulatory Ines Whitman Facility:[facility] Start: 07-09-2024 End: 07-09-2024 ambulatory [facility] Start: 07-09-2024 End: 07-09-2024 Encounter for gynecological examination (general) (routine) without abnormal findings DINO Gary [facility] Start: 07-09-2024 End: 07-09-2024 Patient encounter procedure Dino Lund MD Work Phone: [facility] Start: 07-09-2024 End: 07-09-2024 Periodic preventive med est patient 18-39 yrs Dino Lund MD Work Phone: [facility] Comment on above: Encounter for survei llance of contraceptive pills (Primary Dx); Encounter for annual routine gynecological examination; Encounter for screening for cervical cancer Start: 07-06-2023 End: 07-06-2023 Initial preventive medicine new pt age 18-39yrs Dino Lund MD Work Phone: [facility] Comment on above: Encounter for gyneco logical examination without abnormal finding; Encounter for screening for cervical cancer Start: 07-06-2023 End: 07-06-2023 Patient encounter status Dino Lnud MD Work Phone: [facility] Start: 04-23-2023 End: 04-23-2023 Emergency department patient visit [facility]-Emergency Department Work Phone: Start: 04-18-2023 End: 04-18-2023 Patient encounter procedure [facility]-Radiology, [facility] Work Phone: Start: 01-17-2023 End: 01-17-2023 ambulatory [facility] Work Phone: Start: 01-17-2023 End: 01-17-2023 Patient encounter procedure [facility]-Laboratory, Specimen Work Phone: Start: 09-30-2022 End: 09-30-2022 ambulatory [facility] Work Phone: Start: 09-30-2022 End: 09-30-2022 Patient encounter procedure [facility]-Laboratory, Specimen Work Phone: Start: 03-30-2022 End: 03-30-2022 ambulatory [facility] Work Phone: Start: 03-30-2022 End: 03-30-2022 Patient encounter procedure [facility]-Laboratory, [facility] Date Procedure Procedure Detail Performing Clinician Start: 07-06-2023 Microscopic observat ion [Identifier] in Cervix by Cyto stain Dino Lund MD Work Phone: Start: 04-18-2023 X-ray of cervical spine Start: 01-17-2023 Investigation of transfusion reaction Start: 01-17-2023 Microbial culture, routine Plan of Treatment Date Care Activity Detail Author Start: 10-04-2039 Zoster Vaccines (1 of 2) Zoste r Vaccines (1 of 2) [facility] Start: 07-05-2026 Screening for malign ant neoplasm of cervix [facility] Start: 07-12-2025 End: 07-12-2025 Patient encounter procedure 07/12/2025 3:15 PM EDT Office Visit [facility] [address] [facility] [place] [id number] Dino Lund MD [address] [facility] [place] [address] [facility] Start: 12-03-2024 Influenza vaccination Influenz a Vaccine (Season Ended) [facility] Start: 07-09-2024 End: 07-09-2024 Patient encounter procedure 07/09/2024 3:15 PM EDT Office Visit [facility] [address] [place] [id number] Dino Lund MD [address] [facility], [address] [place] [address] [facility] Start: 07-09-2024 End: 07-09-2025 Cytology Cervical or vaginal smear or scraping study [facility] Service Area Work Phone: Comment on above: Expected: 07/09/2024 (Approximate), Expires: 07/09/2025 Start: 07-06-2024 Yearly Adult Physical Yearly Adult P hysical [facility] Start: 12-04-2023 COVID-19 Vaccine ( season) COVID-19 Vaccine ( season) [facility] Start: 12-04-2023 Influenza vaccination Influenz a Vaccine (Season Ended) [facility] Start: 07-06-2023 End: 07-05-2024 Cytology Cervical or vaginal smear or scraping study [facility] Service Area Work Phone: Comment on above: Expected: 07/06/2023 (Approximate), Expires: 07/05/2024 Start: 04-23-2023 [facility] Start: 04-23-2023 Radiography of ankle Ankle min 3 Vie ws [facility] Start: 04-23-2023 X-ray of both feet Foot min 3 Views [facility] Start: 04-23-2023 XR Ankle GE 3 Views [facility] Start: 04-23-2023 XR Foot GE 3 Views [facility] Start: 10-04-2011 DTaP/Tdap/Td Vaccine s (1 - Tdap) DTaP/Tdap/Td Vaccines (1 - Tdap) [facility] Start: 2010 Screening for malign ant neoplasm of cervix [facility] Start: 2008 Hepatitis B Vaccines (1 of 3 - 19+ 3-dose series) Hepatitis B Vaccines (1 of 3 - 19+ 3-dose series) [facility] Start: 10-04-2007 Hepatitis C screening [facility] Start: 2002 Varicella vaccination Varicell a Vaccines (1 of 2 - 13+ 2-dose series) [facility] Start: 1990 MMR Vaccines (1 of 1 - Standard series) MMR Vaccines (1 of 1 - Standard series) [facility] Start: 1990 Varicella vaccination Varicell a Vaccines (1 of 2 - 2-dose childhood series) [facility] Start: 04-05-1990 COVID-19 Vaccine (#1) COVID-19 Vacci ne (#1) [facility] Start: 1989 Hepatitis B Vaccines (1 of 3 - 3-dose series) Hepatitis B Vaccines (1 of 3 - 3-dose series) [facility] Start: 1989 HIV screening HIV Screening [facility] Start: 1989 Lipid panel Lipid Panel [facility] Start: 1989 Yearly Adult Physical Yearly Adult P hysical [facility] Path report.final Dx Spec [facility] Patient Education ED Foot Contus ion ED Contusion, Lower Extremity [facility] Work Phone: Patient referral [facility] Work Phone: [facility] Payers Date Payer Category Payer Self-pay [id number] 2021 Managed Care (Private) [facility] [id number] 2021 Unknown [employer] [facility] [id number] 2021-Present [address] [place] [address] [id number] 2021 Unknown [id number] 2014 Unknown [employer] [id number] 1989 Unknown [id number] Unknown [id number] Social History Date Type Detail Facility Start: 06-09-2017 End: 04-23-2023 Tobacco smoking status NHIS Unknown if ever smoked [facility] Start: 07-10-2014 Occasional [facility] Start: 07-10-2014 None [facility] Start: 07-10-2014 Roommate [facility] Start: 07-10-2014 Non-smoker [facility] Start: 1989 Sex Assigned At Female [facility] Start: 07-06-2023 Tobacco smoking stat us NHIS Never smoked tobacco [facility] Work Phone: Start: 07-06-2023 Tobacco use and exposure Smokeless tobacco non-user [facility] Work Phone: Start: 07-06-2023 End: 07-09-2024 Alcohol intake Ex-drinker (finding) [facility] Work Phone: Start: 07-06-2023 End: 07-09-2024 History of [address] function [facility] Work Phone: Start: 07-06-2023 End: 07-09-[address] [facility] Work Phone: Start: 1990 [facility] Start: 06-26-2023 End: 07-09-2024 Exposure to SARS-CoV-2 (event) Not sure [facility] Within the last year , have you been afraid of your partner or ex-partner? No [facility] Work Phone: How often to you hav e a drink containing alcohol? Never [facility] Work Phone: How many standard drinks containing alcohol do you have on a typical day? Patient does not drink [facility] Work Phone: Do you feel stress - tense, restless, nervous, or anxious, or unable to sleep at night because your mind is troubled all the time - these days [OSQ] Not at all [facility] Work Phone: (I/We) worried meagan er (my/our) food would run out before (I/we) got money to buy more. Never true [facility] Work Phone: History of Present illness Narrative 07-09-2024 Dino Lund MD - 07/09/2024 3:15 PM EDT Note Date & Type Note Facility 07-09-2024 History of Present illness Narrative Ross Bolden is a 33 y.o. female who is here for a routine exam. PCP = No Assigned PCP Generic ProviderMD Chief Complaint Patient presents with Gynecologic Exam Patient is here for yearly exam and pap test. Patient does do regular self breast exams. Patient would like to discuss control options due to cramps and heavy flow. LMP: 06/15/24. Presents for annual exam. She voices no complaints and is doing well. Denies any bowel or bladder problems. Denies any breast problems. She is interested in being started on control pills due to heavy menstrual flows and cramps. OB History 0 Para 0 Term 0 0 AB 0 Living 0 SAB 0 IAB 0 Ectopic 0 Multiple 0 Live Births 0 Social History Substance and Sexual Activity Sexual Activity Yes control/protection: None Current contraception: None History reviewed. No pertinent past medical history. Past Surgical History: Procedure Laterality Date OTHER SURGICAL HISTORY SVT Ablation Past med hx and past surg hx reviewed and notable for: none Review of Systems: Constitutional: No fever or chills Respiratory: No shortness of breath, or cough Cardiovascular: No chest pain or syncope Breasts: No breast pain, no masses, no nipple discharge Gastrointestinal: No nausea, vomiting, or diarrhea, no abdominal pain Genitourinary: No dysuria or frequency Gynecology: Negative except as noted in history of present illness All other: All other systems reviewed and negative for complaint Objective BP 118/64 Ht 1.626 m (5' 4) Wt 52.1 kg (114 lb 12.8 oz) LMP 06/15/2024 (Exact Date) BMI 19.71 kg/m 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 HEENT: Clear. Pupils equal, round and reactive to light and accommodation. Extraocular muscles are intact. Oral mucosa pink without exudate. NECK: No lymphadenopathy, no thyromegaly. BREASTS: Symmetric, no palpable masses. No nipple discharge or retraction. LUNGS: Clear bilaterally. HEART: Regular rate and rhythm without murmurs. ABDOMEN: Normoactive bowel sounds, soft and nontender, no guarding or rebound tenderness, no CVA tenderness. EXTREMITIES: No clubbing, cyanosis or edema. NEUROLOGIC: Cranial nerves II-XII grossly intact. : Normal external female genitalia, normal vulva, normal vagina. Normal urethral meatus, urethra and bladder. Normal appearing cervix. Normal-sized uterus, no adnexal masses or tenderness. Pap smear performed today. Actions performed during this visit include: - Clinical breast exam - Clinical pelvic exam - No orders of the defined types were placed in this encounter. Problem List Items Addressed This Visit None Visit Diagnoses Encounter for surveillance of contraceptive pills - Primary Relevant Medications norethindrone (Micronor) 0.35 mg tablet Encounter for annual routine gynecological examination Relevant Orders THINPREP PAP TEST Encounter for screening for cervical cancer Relevant Orders THINPREP PAP TEST Provider Impression: 1. Annual 2. Contraceptive counseling Discussed various forms of contraception and she wishes to be started on the control pills. Since she smokes and will be turning 34 in several months will prescribe a progesterone only pill. Thank you for coming to your annual exam. Your findings during the exam were normal. Please return for your next visit in 1 year. documented in this encounter [facility] Work Phone: History of Present illness Narrative 07-06-2023 Dino Lund MD - 07/06/2023 3:15 PM EDT Note Date & Type Note Facility 07-06-2023 History of Present illness Narrative Ross Bolden is a 32 y.o. female who is here for a routine exam. PCP = No primary care provider on file. Chief Complaint Patient presents with Gynecologic Exam PT is here as a new pt for her yearly. Reports she does do self breast exams. Last mammo was 2-3 years ago due to left breast being larger than right, denies discharge or irregular bleeding. LMP was 06/20/23. Presents for annual exam. She voices no complaints and is doing well. Denies any bowel or bladder problems. Denies any breast problems. She is using nothing for contraception at this time. OB History 0 Para 0 Term 0 0 AB 0 Living 0 SAB 0 IAB 0 Ectopic 0 Multiple 0 Live Births 0 Social History Substance and Sexual Activity Sexual Activity Yes control/protection: None Current contraception: None History reviewed. No pertinent past medical history. Past Surgical History: Procedure Laterality Date OTHER SURGICAL HISTORY SVT Ablation Past med hx and past surg hx reviewed and notable for: none Review of Systems: Constitutional: No fever or chills Respiratory: No shortness of breath, or cough Cardiovascular: No chest pain or syncope Breasts: No breast pain, no masses, no nipple discharge Gastrointestinal: No nausea, vomiting, or diarrhea, no abdominal pain Genitourinary: No dysuria or frequency Gynecology: Negative except as noted in history of present illness All other: All other systems reviewed and negative for complaint Objective BP 102/66 Ht 1.626 m (5' 4) Wt 57.2 kg (126 lb) LMP 06/20/2023 (Approximate) BMI 21.63 kg/m PHYSICAL EXAMINATION: Well-developed, well nourished, in no acute distress, alert and oriented x three, is pleasant and cooperative. HEENT: Clear. Pupils equal, round and reactive to light and accommodation. Extraocular muscles are intact. Oral mucosa pink without exudate. NECK: No lymphadenopathy, no thyromegaly. BREASTS: Symmetric, no palpable masses. No nipple discharge or retraction. LUNGS: Clear bilaterally. HEART: Regular rate and rhythm without murmurs. ABDOMEN: Normoactive bowel sounds, soft and nontender, no guarding or rebound tenderness, no CVA tenderness. EXTREMITIES: No clubbing, cyanosis or edema. NEUROLOGIC: Cranial nerves II-XII grossly intact. : Normal external female genitalia, normal vulva, normal vagina. Normal urethral meatus, urethra and bladder. Normal appearing cervix. Normal-sized uterus, no adnexal masses or tenderness. Pap smear performed today. Actions performed during this visit include: - Clinical breast exam - Clinical pelvic exam - No orders of the defined types were placed in this encounter. Problem List Items Addressed This Visit None Visit Diagnoses Encounter for gynecological examination without abnormal finding Relevant Orders THINPREP PAP TEST Encounter for screening for cervical cancer Relevant Orders THINPREP PAP TEST Provider Impression: 1. Annual Thank you for coming to your annual exam. Your findings during the exam were normal. Please return for your next visit in 1 year. documented in this encounter [facility] Work Phone: Clinical Note 09-30-2022 Note Date & Type Note Facility 09-30-2022 Note [facility] Pap Smear Specimen Adequacy September 30, 2022 3:39pm Comment . Satisfactory for evaluation. Endocervical and/or squamous metaplasticcells (endocervical component) are present. Comment on above: Satisfactory for emely luation. Endocervical and/or squamous metaplasticcells (endocervical component) are present. Evaluation note Note Date & Type Note Facility Evaluation note No assessment information availa ble [facility] Work Phone: Evaluation note Note Date & Type Note Facility Evaluation note Diagnosis Encounter for gynecological examination without abnormal finding Encounter for screening for cervical cancer documented in this encounter [facility] Work Phone: Evaluation note Note Date & Type Note Facility Evaluation note Diagnosis Encounter for surveillance of contraceptive pills- Primary Encounter for annual routine gynecological examination Encounter for screening for cervical cancer documented in this encounter [facility] Work Phone: Hospital Discharge instructions Note Date & Type Note Facility Hospital Discharge instructions Additional Instructions X-ray of your foot and ankle looks good. Nothing broken or dislocated. Ice and elevate. Increase activity as tolerated. Follow-up if not improving to have it reevaluated. Motrin for pain and swelling. [facility] Work Phone: Family History No Family History Records Found Relationship Condition Age at Onset Recorded Date/T sonali Unknown Family History?Hypertension Unknown July 10, 2014 6:02pm Family History?Hypertension Unknown December 09, 2014 2:42pm Family History?No pe rtinent history Unknown December 09, 2014 2:42pm Relationship Condition Age at Onset Recorded Date/T sonali Unknown Family History?Hypertension Unknown July 10, 2014 7:02pm Family History?Hypertension Unknown December 09, 2014 3:42pm Family History?No pe rtinent history Unknown December 09, 2014 3:42pm Advance Directives No Advanced Directives Records Found Advance Directive Response Recorded Date/ Time Advance Directives No October 19 9:53am Living Will No October 20, 2015 9:53am Power of Equipment Washer No October 19 6 9:53am Advance Directive Response Recorded Date/ Time Advance Directives No October 19 10:53am Living Will No October 20, 2015 10:53am Power of Equipment Washer No October 19 6 10:53am Advance Directive Response Recorded Date/ Time Name of Medical Power of Equipment Washer diaz gary April 23, 2023 1:42am Advance Directives No October 19 9:53am Living Will Yes April 23 1:42am Power of Equipment Washer Yes April 23, 2023 1:42am Chief Complaint and Reason for Visit 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 Haroon Jorgensen MD Family Provider Active Dr. Haroon Jorgensen MD Primary Care Provider Activ e Team Status: Inactive Member Role Status Dates Dr. aHroon Jorgensen MD Primary Care Provider Activ e DOMINIQUE Hassan Attending Provider Active Team Status: Inactive Member Role Status Dates Dr. Haroon Jorgensen MD Primary Care Provider Activ e Dr. Luis Gooden MD Attending Provider, Referring Pr ovid Active Team Status: Inactive Member Role Status Dates Dr. Haroon Jorgensen MD Primary Care Provider Cat Thomas MD Attending Provider, Referring Provider Active Team Status: Inactive Member Role Status Dates Dr. 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 Reports she does do self breast exams. Last mammo was 2-3 years ago due to left breast being larger than right, denies discharge or irregular bleeding. LMP was 06/20/23. Reason Comments Gynecologic Exam Patient is here for yearly exam and pap test. Patient does do regular self breast exams. Patient would like to discuss control options due to cramps and heavy flow. LMP: 06/15/24. INFORMATION SOURCE (unrecogn ized section and content) DATE CREATED AUTHOR 07/23/2024 [facility] DATE CREATED AUTHOR AUTHOR'S ORGANIZ ATION 09/26/2024 [facility] FOR RECORDS PERTAINING TO PATIENTS WHO ARE OR HAVE BEEN ENROLLED IN A CHEMICAL DEPENDENCY/SUBSTANCEABUSE PROGRAM, SOME INFORMATION MAY BE OMITTED. This clinical summary was aggregated from multiple sources. Caution should be exercised in using it in the provision of clinical care. This summary normalizes information from multiple sources, and as a consequence, information in this document may materially change the coding, format and clinical context of patient data. In addition, data may be omitted in some cases. CLINICAL DECISIONS SHOULD BE BASED ON THE PRIMARY CLINICAL RECORDS. [employer] provides no warranty or guarantee of the accuracy or completeness of information in this document.
[2024-09-30 15:02] VITALS: BP 117/75; PULSE 74; RESP 19; TEMP 36.6; O2SAT 100
== END 2024-09-30 15:03 | disposition home or self-care (01) ==
PROVIDERS: Emergency Provider Emergency Medicine; PCP Nurse Practitioner Family; Visit Provider Emergency Medicine
DX: S61.211A Laceration without foreign body of left index finger without damage to nail, initial encounter (principal); W31.2XXA Contact with powered woodworking and forming machines, initial encounter; R55 Syncope and collapse
CPT/HCPCS: 99282